=== PATIENT | male | born 1950 | race Caucasian/White ===

== ENCOUNTER → 2016-12-22 | Outpatient (CLI) | payer MEDICARE, BC ==
[~2016-12-22] MED LIST: ACID CONTROLLER20 MG PO; ASPIR 8181 MG PO; BENADRYL 25MG C25 MG PO; CALCIUM 600 +1 EAC7 PO; CATAPRES0.1 MG PO; COREG 12.5MG12.5 MG PO; DEMADEX 20 MG T20 MG PO; DOXYCYCLINE HY100 M2 PO; HYDROXYZINE HCL25 MG PO; K-DUR TAB 20 M20 MEQ PO; LEVOTHYROXINE75 MCG PO; LIPITOR TAB 2020 MG PO; MIRALAX PACK 171 PKT PO; MYCOPHENOLIC A360 MG PO; PROGRAF1 MG PO; SENOKOT-S TABL1 EACH PO; SODIUM BICARBO650 M1 GT; SODIUM BICARBO650 MG PO; [UNRECOGNIZED DRUG - OTHER] INH
[2016-12-22 10:21] LABS: HEMOGLOBIN 12.4 gm/dl (14.0-17.5); RED BLOOD COUNT 4.22 M/UL (4.20-5.50); WHITE BLOOD COUNT 4.8 K/UL (4.5-11.0)
== END ==
LOC: LAB 09:23
PROVIDERS: Internal Medicine Nephrology
DX: T86.10 Unspecified complication of kidney transplant (principal); T86.898 Other complications of other transplanted tissue; Z79.899 Other long term (current) drug therapy; E55.9 Vitamin D deficiency, unspecified; R73.09 Other abnormal glucose; R53.83 Other fatigue; D63.1 Anemia in chronic kidney disease; E13.9 Other specified diabetes mellitus without complications; E78.00 Pure hypercholesterolemia, unspecified; E83.52 Hypercalcemia; N25.81 Secondary hyperparathyroidism of renal origin; N39.0 Urinary tract infection, site not specified; N18.9 Chronic kidney disease, unspecified
CPT/HCPCS: 36415; 80053; 80197; 81001; 82150; 82550; 82570; 83690; 83735; 84100; 84156; 85025

== ENCOUNTER → 2017-02-11 | Outpatient (CLI) | payer MEDICARE, BC ==
[2017-02-11 10:16] LABS: HEMOGLOBIN 13.3 gm/dl (14.0-17.5); RED BLOOD COUNT 4.53 M/UL (4.20-5.50)
== END ==
LOC: LAB 08:40
PROVIDERS: Internal Medicine Nephrology
DX: T86.10 Unspecified complication of kidney transplant (principal); T86.898 Other complications of other transplanted tissue; E55.9 Vitamin D deficiency, unspecified; R73.09 Other abnormal glucose; R53.83 Other fatigue; D63.1 Anemia in chronic kidney disease; E13.9 Other specified diabetes mellitus without complications; E78.5 Hyperlipidemia, unspecified; E83.52 Hypercalcemia; N25.81 Secondary hyperparathyroidism of renal origin; N39.0 Urinary tract infection, site not specified; N18.9 Chronic kidney disease, unspecified; Z79.899 Other long term (current) drug therapy
CPT/HCPCS: 36415; 80053; 80061; 80197; 81001; 82150; 82550; 82570; 82728; 83036; 83540; 83550; 83690; 83735; 84100; 84156; 84443; 84681; 85025; 87799

== ENCOUNTER → 2017-06-01 | Outpatient (CLI) | payer MEDICARE, BC ==
[2017-06-01 12:41] LABS: HEMOGLOBIN 14.3 gm/dl (14.0-17.5); RED BLOOD COUNT 4.88 M/UL (4.20-5.50); WHITE BLOOD COUNT 6.4 K/UL (4.5-11.0)
[2017-06-01 13:01] LABS: BUN/CREATININE RATIO 17 (0-10)
== END ==
LOC: LAB 11:28
PROVIDERS: Internal Medicine Nephrology
DX: Z12.5 Encounter for screening for malignant neoplasm of prostate (principal); T86.10 Unspecified complication of kidney transplant; N18.9 Chronic kidney disease, unspecified; D63.1 Anemia in chronic kidney disease; R53.83 Other fatigue; E78.00 Pure hypercholesterolemia, unspecified; E13.9 Other specified diabetes mellitus without complications; N25.81 Secondary hyperparathyroidism of renal origin; T86.898 Other complications of other transplanted tissue; Z79.899 Other long term (current) drug therapy; R73.09 Other abnormal glucose; E83.52 Hypercalcemia; N39.0 Urinary tract infection, site not specified
CPT/HCPCS: 36415; 80053; 80197; 81001; 82150; 82550; 82570; 83690; 83735; 84100; 84156; 84443; 85025; G0103

== ENCOUNTER → 2020-10-07 | Outpatient (CLI) | payer MEDICARE, BC, OTHER ==
[2020-10-07 11:44] LABS: HEMOGLOBIN 12.4 gm/dl (14.0-17.5); RED BLOOD COUNT 4.98 M/UL (4.20-5.50); WHITE BLOOD COUNT 10.1 K/UL (4.5-11.0)
[2020-10-07 12:14] LABS: BUN/CREATININE RATIO 17 (0-10)
[2020-10-08 08:14] LABS: VITAMIN D, 25-HYDROXY 67.7 ng/mL (30.0-100.0)
[2020-10-08 11:14] LABS: C-PEPTIDE, SERUM 3.5 ng/mL (1.1-4.4)
[2020-10-08 14:14] LABS: TACROLIMUS BY IMMUNOASSAY 6.6 ng/mL (2.0-20.0)
[2020-10-10 07:11] LABS: BK QUANTITATION PCR (URINE) Negative (Negative)
== END ==
LOC: LAB 09:37
PROVIDERS: Internal Medicine Nephrology
DX: T86.10 Unspecified complication of kidney transplant (principal); T86.898 Other complications of other transplanted tissue; E55.9 Vitamin D deficiency, unspecified; R73.09 Other abnormal glucose; R53.83 Other fatigue; R82.79 Other abnormal findings on microbiological examination of urine; D63.1 Anemia in chronic kidney disease; E78.5 Hyperlipidemia, unspecified; N25.81 Secondary hyperparathyroidism of renal origin; N39.0 Urinary tract infection, site not specified; E13.22 Other specified diabetes mellitus with diabetic chronic kidney disease; N18.9 Chronic kidney disease, unspecified
CPT/HCPCS: 36415; 80053; 80061; 80197; 81001; 82150; 82550; 82570; 82728; 83036; 83540; 83550; 83690; 83735; 83970; 84100; 84156; 84681; 85025; 87799

== ENCOUNTER → 2021-06-18 | Outpatient (CLI) | payer MEDICARE, BC ==
[2021-06-18 10:10] LABS: HEMOGLOBIN 8.7 gm/dl (14.0-17.5); WHITE BLOOD COUNT 5.9 K/UL (4.5-11.0)
[2021-06-18 10:35] LABS: BUN/CREATININE RATIO 14 (0-10)
[2021-06-19 08:14] LABS: VITAMIN D, 25-HYDROXY 85.1 ng/mL (30.0-100.0)
[2021-06-19 11:14] LABS: C-PEPTIDE, SERUM 2.1 ng/mL (1.1-4.4)
[2021-06-19 13:14] LABS: TACROLIMUS BY IMMUNOASSAY 4.7 ng/mL (2.0-20.0)
[2021-06-25 08:13] LABS: BK QUANTITATION PCR (URINE) Negative (Negative)
== END ==
LOC: LAB 09:26
PROVIDERS: Internal Medicine Nephrology
DX: T86.10 Unspecified complication of kidney transplant (principal); T86.898 Other complications of other transplanted tissue; E55.9 Vitamin D deficiency, unspecified; R73.09 Other abnormal glucose; R53.83 Other fatigue; R82.79 Other abnormal findings on microbiological examination of urine; N18.9 Chronic kidney disease, unspecified; D63.1 Anemia in chronic kidney disease; E13.9 Other specified diabetes mellitus without complications; E78.5 Hyperlipidemia, unspecified; N25.81 Secondary hyperparathyroidism of renal origin; N39.0 Urinary tract infection, site not specified; Z79.899 Other long term (current) drug therapy
CPT/HCPCS: 36415; 80053; 80061; 80197; 81001; 82150; 82550; 82570; 82728; 83036; 83540; 83550; 83690; 83735; 83970; 84100; 84156; 84681; 85025; 87799

== ENCOUNTER → 2021-08-11 | Outpatient (CLI) | payer MEDICARE, BC ==
[2021-08-11 12:48] LABS: HEMOGLOBIN 12.7 gm/dl (14.0-17.5); WHITE BLOOD COUNT 6.7 K/UL (4.5-11.0)
[2021-08-11 13:18] LABS: BUN/CREATININE RATIO 16 (0-10)
== END ==
LOC: LAB 10:59
PROVIDERS: Internal Medicine Nephrology
DX: E11.22 Type 2 diabetes mellitus with diabetic chronic kidney disease (principal); N18.9 Chronic kidney disease, unspecified; D63.1 Anemia in chronic kidney disease; E78.5 Hyperlipidemia, unspecified; N39.0 Urinary tract infection, site not specified; N25.81 Secondary hyperparathyroidism of renal origin; T86.10 Unspecified complication of kidney transplant; T86.898 Other complications of other transplanted tissue; E55.9 Vitamin D deficiency, unspecified; R73.09 Other abnormal glucose; R53.83 Other fatigue; R82.79 Other abnormal findings on microbiological examination of urine; Z79.899 Other long term (current) drug therapy
CPT/HCPCS: 36415; 80053; 80197; 81001; 82150; 82550; 82570; 83690; 83735; 84100; 84156; 85025

== ENCOUNTER → 2021-08-13 | Day surgery (SDC) | payer MEDICARE, BC ==
[~2021-08-13] MED LIST changes: +IRON325 M1 PO; +LIPITOR20 MG PO; +MG-PLUS-PROTEI133 MG PO; +PAMELOR PO; +PRADAXA75 MG PO; +[UNRECOGNIZED DRUG - OTHER] PO
== END | disposition home or self-care (01) ==
LOC: OR 06:43
DX: D50.9 Iron deficiency anemia, unspecified (principal); K25.9 Gastric ulcer, unspecified as acute or chronic, without hemorrhage or perforation; K62.6 Ulcer of anus and rectum; K64.4 Residual hemorrhoidal skin tags; K31.9 Disease of stomach and duodenum, unspecified; K31.A11 Gastric intestinal metaplasia without dysplasia, involving the antrum; I10 Essential (primary) hypertension; E11.9 Type 2 diabetes mellitus without complications; Z88.2 Allergy status to sulfonamides; Z80.0 Family history of malignant neoplasm of digestive organs; Z72.0 Tobacco use; Z79.01 Long term (current) use of anticoagulants; Z95.5 Presence of coronary angioplasty implant and graft; Z20.822 Contact with and (suspected) exposure to COVID-19
CPT/HCPCS: J2704; J3010; J7040

== ENCOUNTER → 2021-11-26 | Outpatient (CLI) | payer MEDICARE, BC ==
[2021-11-26 09:51] LABS: HEMOGLOBIN 11.9 gm/dl (14.0-17.5); RED BLOOD COUNT 4.93 M/UL (4.20-5.50); WHITE BLOOD COUNT 5.8 K/UL (4.5-11.0)
[2021-11-26 10:25] LABS: BUN/CREATININE RATIO 14 (0-10)
[2021-11-27 09:16] LABS: C-PEPTIDE, SERUM 2.2 ng/mL (1.1-4.4); VITAMIN D, 25-HYDROXY 99.8 ng/mL (30.0-100.0)
[2021-11-27 12:16] LABS: TACROLIMUS BY IMMUNOASSAY 4.4 ng/mL (2.0-20.0)
== END ==
LOC: LAB 09:07
PROVIDERS: Internal Medicine Nephrology
DX: D63.1 Anemia in chronic kidney disease (principal); T86.898 Other complications of other transplanted tissue; R53.83 Other fatigue; R82.79 Other abnormal findings on microbiological examination of urine; N25.81 Secondary hyperparathyroidism of renal origin; N39.0 Urinary tract infection, site not specified; N18.9 Chronic kidney disease, unspecified; E55.9 Vitamin D deficiency, unspecified; E13.9 Other specified diabetes mellitus without complications
CPT/HCPCS: 36415; 80053; 80061; 80197; 81001; 82150; 82550; 82570; 82728; 83036; 83540; 83550; 83690; 83735; 83970; 84100; 84156; 84681; 85025